=== PATIENT | female | born 1960 | race Caucasian/White ===

== ENCOUNTER 2022-06-21 22:31 | Emergency (ER) | payer OTHER, SELFPAY ==
[2022-06-21 22:40] VITALS: BP 148/85; PULSE 98; RESP 22; TEMP 36.4; O2SAT 99; BMI 38.2
[2022-06-21] MEDS: ondansetron 2 mg/ML SDV 2 mL 4 MG IVP (23:03)
[2022-06-21 23:04] LABS: Basophils # 0.1 10^3/uL (0.0-0.1); Basophils % 0.4 %; Eosinophils # 0.1 10^3/uL (0.0-0.8); Eosinophils % 1.2 %; Hematocrit 49.5 % (37.0-47.0); Hemoglobin 16.5 g/dL (11.5-15.3); Lymphocytes # 1.1 10^3/uL (0.8-4.8); Mean Corpuscular HGB Conc 33.3 g/dL (30.0-36.0); Mean Corpuscular Hemoglobin 32.3 pg (28.0-34.0); Mean Corpuscular Volume 96.9 fl (81-99); Mean Platelet Volume 9.6 fL (7.4-10.4); Monocytes # 0.6 10^3/uL (0.2-0.9); Monocytes % 5.2 %; Neutrophils # 9.31 10^3/uL (1.8-7.7); Neutrophils % 82.9 %; Nucleated Red Blood Cells % 0 %; Platelet Count 198 10^3/cmm (130-400); Red Blood Count 5.11 10^6/uL (4.1-5.3); Red Cell Distribution Width 13.2 % (12.1-15.1); White Blood Count 11.2 10^3/uL (4.0-10.0)
--- NOTE | 2022-06-21 23:14 | ED_ITS ---
HPI - Abdominal Pain General: Chief Complaint: Abdominal Pain Stated Complaint: N/V Time Seen by Provider: 06/21/22 23:05 Source: patient Mode of arrival: ambulatory Limitations: no limitations History of Present Illness: [id number] female who states that she has been having nausea vomiting along with abdominal cramping since 7 PM today after she vomited she has vomited roughly 3-4 times her pain is a 2 out of 10 she denies any fevers denies any diarrhea she states her was recently sick with a GI bug as well. Associated Symptoms: Reports nausea and vomiting; Denies chills, dysuria and fever(s) Review of Systems Const: Denies: fever(s), chills, body aches or change in appetite Eyes: Denies: blurry vision or eye discomfort ENMT: Denies: throat pain or dental pain Card: Denies: chest pain Resp: Denies: dyspnea GI: Reports: abdominal pain, nausea and vomiting : Denies: dysuria Musc: Denies: neck pain or back pain Skin/Breast: Denies: rash Neuro: Denies: headache(s) Psych: Denies: depression Rios/Lymph: Denies: easy bruising All/Imm: Denies: urticaria PFSH ED PFSH: Surgical History (Updated 06/21/22 @ 23:15 by Onesimo Castillo MD) Hx of cholecystectomy Social History (Updated 06/21/22 @ 23:15 by Onesimo Castillo MD) Substance/Drug Use: never Physical Exam Const: COMMON NORMALS: no acute distress, patient oriented x3 and healthy appearing HENMT: COMMON NORMALS: normocephalic and atraumatic HEAD & SCALP: normocephalic and atraumatic Eye: COMMON NORMALS: Equal, round and reactive pupils present and EOMs intact bilaterally PUPIL: Yes Equal, round and reactive pupils present Neck/C-Spine: COMMON NORMALS: full ROM and supple Chest: COMMONS NORMALS: normal inspection of the chest and normal palpation of entire chest wall Resp: COMMON NORMALS: normal respiratory effort, No retractions, No use of accessory muscles and clear to auscultation bilaterally AUSCULTATION: clear to auscultation bilaterally Cardio: COMMON NORMALS: regular rate, regular rhythm and No murmurs present (Cardio) RATE: regular rate RHYTHM: regular rhythm GI: COMMON NORMALS: Normal to inspection, nondistended, normoactive bowel mee nds present, Soft to palpation, non-tender and no masses PALPATION: Yes Soft to palpation Extremity: COMMON NORMALS: normal to inspection and full ROM Neuro: COMMON NORMALS: patient oriented x3, moves all extremities and no focal motor deficits Psych: COMMON NORMALS: mental status grossly normal, Normal thought process present and cooperative THOUGHT PROCESS: Normal thought process present Skin: COMMON NORMALS: no rashes or lesions noted and no wounds GENERAL SKIN EXAM: no rashes or lesions noted Course Vital Signs: Vital signs: Vital Signs Temperature 97.5 F L 06/21/22 22:40 Pulse Rate 106 H 06/22/22 00:52 Respiratory Rate 18 06/22/22 00:52 Blood Pressure 156/83 06/22/22 00:52 Pulse Oximetry 95 06/22/22 00:52 Oxygen Delivery Me thod 06/21/22 22:40 MDM - Abdominal Pain Medical Decision Making Patient presents here with vomiting and mild abdominal pain CT scan here showed no acute ab malady she feels improved here we will prescribe her Zofran for home she is to follow-up with PCP and return if worsening. Lab Data 06/21/22 22:58 06/21/22 22:58 Labs/Radiology: Radiology Impressions Abdomen/Pelvis CT 06/22/22 00:16 IMPRESSION: 1. Mild nonspecific ileus versus gastroenteritis. 2. Colonic diverticulosis without CT evidence of diverticulitis. 3. Hepatic cirrhosis. 4. Previous cholecystectomy. 5. Atherosclerotic vascular disease including coronary artery disease. Laboratory Results WBC 11.2 10^3/uL (4.0-10.0) H 06/21/22 22:58 RBC 5.11 10^6/uL (4.1-5.3) 06/21/22 22:58 Hgb 16.5 g/dL (11.5-15.3) H 06/21/22 22:58 Hct 49.5 % (37.0-47.0) H 06/21/22 22:58 MCV 96.9 fl (81-99) 06/21/22 22:58 MCH 32.3 pg (28.0-34.0) 06/21/22 22:58 MCHC 33.3 g/dL (30.0-36.0) 06/21/22 22:58 RDW 13.2 % (12.1-15.1) 06/21/22 22:58 Plt Count 198 10^3/cmm (130-400) 06/21/22 22:58 MPV 9.6 fL (7.4-10.4) 06/21/22 22:58 Neut % (Auto) 82.9 % 06/21/22 22:58 Lymph % (Auto) 10.0 % 06/21/22 22:58 Gentry % (Auto) 5.2 % 06/21/22 22:58 Eos % (Auto) 1.2 % 06/21/22 22:58 Baso % (Auto) 0.4 % 06/21/22 22:58 Neut # (Auto) 9.31 10^3/uL (1.8-7.7) H 06/21/22 22:58 Lymph # (Auto) 1.1 10^3/uL (0.8-4.8) 06/21/22 22:58 Gentry # (Auto) 0.6 10^3/uL (0.2-0.9) 06/21/22 22:58 Eos # (Auto) 0.1 10^3/uL (0.0-0.8) 06/21/22 22:58 Baso # (Auto) 0.1 10^3/uL (0.0-0.1) 06/21/22 22:58 Nucleated RBC % (auto) 0 % 06/21/22 22:58 Nucleated RBCs # 0.0 /100WBC 06/21/22 22:58 Sodium 136 mmol/L (136-145) 06/21/22 22:58 Potassium 4.1 mmol/L (3.5-5.1) 06/21/22 22:58 Chloride 97 mmol/L (98-107) L 06/21/22 22:58 Carbon Dioxide 20 mmol/L (22-29) L 06/21/22 22:58 Anion Gap 23.1 (5-19) H 06/21/22 22:58 BUN 17 mg/dL (8-23) 06/21/22 22:58 Creatinine 0.6 mg/dL (0.5-0.9) 06/21/22 22:58 GFR Calculation 101.3 mL/min (90-130) 06/21/22 22:58 Glucose 196 mg/dL (65-115) H 06/21/22 22:58 Calculated Osmolality 289 mOsm/kg (285-295) 06/21/22 22:58 Calcium 9.5 mg/dL (8.5-10.5) 06/21/22 22:58 Total Bilirubin 0.5 mg/dL (0.15-1.2) 06/21/22 22:58 AST 37 U/L (0-32) H 06/21/22 22:58 ALT 34 U/L (0-33) H 06/21/22 22:58 Alkaline Phosphatase 79 U/L (35-105) 06/21/22 22:58 Total Protein 7.8 g/dL (6.6-8.7) 06/21/22:58 Albumin 4.2 g/dL (3.5-5.2) 06/21/22:58 Globulin 3.6 g/dL (1.3-4.6) 06/21/22 22:58 Lipase 39 U/L (13-60) 06/21/22 22:58 Urine Color Yellow (Yellow) 06/22/22 00:30 Urine Appearance Clear (CLEAR) 06/22/22 00:30 Urine pH 5 (5-7) 06/22/22 00:30 Ur Specific Chandler 1.020 (1.005-1.030) 06/22/22 00:30 Urine Protein Neg (Negative) 06/22/22 00:30 Urine Glucose (UA) 4+ (Normal) H 06/22/22 00:30 Urine Ketones 2+ (Negative) H 06/22/22 00:30 Urine Blood Neg (Negative) 06/22/22 00:30 Urine Nitrate Negative (Negative) 06/22/22 00:30 Urine Bilirubin Neg (Negative) 06/22/22 00:30 Urine Urobilinogen Norm mg/dL (Negative) 06/22/22 00:30 Ur Leukocyte Esterase Trace (Negative) H 06/22/22 00:30 Urine RBC None /hpf (0-2) 06/22/22 00:30 Urine WBC 0-4 /hpf (0-5) H 06/22/22 00:30 Ur Squamous Epith Cells 0-4 /hpf (0-5) H 06/22/22 00:30 Amorphous Sediment Not Reportable 06/22/22 00:30 Urine Bacteria None /hpf (NONE) 06/22/22 00:30 Discharge Plan Discharge Patient Disposition: Home Clinical Impression: Vomiting Prescriptions: New ondansetron 4 mg tablet,disintegrating 4 mg PO Q6H PRN (Reason: nausea and vomiting) Qty: 14 0RF Discharge Orders: Discharge ED (Routine); Ordered 06/22/22 Ordered By: Onesimo Castillo Discharge Diet: Advance as tolerated Discharge Activity: Resume usual activity Patient Instructions: Acute Nausea and Vomiting (ED) Coding Level of Care Code ED [employer]ician for Chg Fwd Exam Comprehensive
[2022-06-21] MEDS: sodium chloride 0.9% 1,000 ML 999 ML IV (23:15)
[2022-06-21 23:33] LABS: Alanine Aminotransferase 34 U/L (0-33); Albumin Level 4.2 g/dL (3.5-5.2); Alkaline Phosphatase 79 U/L (35-105); Aspartate Amino Transferase 37 U/L (0-32); Blood Urea Nitrogen 17 mg/dL (8-23); Calcium 9.5 mg/dL (8.5-10.5); Carbon Dioxide 20 mmol/L (22-29); Chloride 97 mmol/L (98-107); Globulin 3.6 g/dL (1.3-4.6); Glomerular Filtration Rate 101.3 mL/min (90-130); Glucose 196 mg/dL (65-115); Lipase 39 U/L (13-60); Osmolality Calculated 289 mOsm/kg (285-295); Sodium 136 mmol/L (136-145); Total Bilirubin 0.5 mg/dL (0.15-1.2); Total Protein 7.8 g/dL (6.6-8.7)
[2022-06-21 23:37] LABS: Anion Gap 23.1 (5-19); Potassium 4.1 mmol/L (3.5-5.1)
--- NOTE | 2022-06-22 00:10 | PC.NURSE ---
patient given water for PO challenge
--- NOTE | 2022-06-22 00:16 | CTR_ITS ---
PROCEDURE INFORMATION: Exam: CT Abdomen And Pelvis Without Contrast Exam date and time: 06/22/2022 12:33 AM Age: 62 years old Clinical indication: Nausea and vomiting; Abdominal pain; Generalized; Prior surgery; Surgery type: Gb; Patient HX: C/O diffuse abd pain with n/v. TECHNIQUE: Imaging protocol: Computed tomography of the abdomen and pelvis without contrast. Radiation optimization: All CT scans at this facility use at least one of these dose optimization techniques: automated exposure control; mA and/or kV adjustment per patient size (includes targeted exams where dose is matched to clinical indication); or iterative reconstruction. COMPARISON: No relevant prior studies available. RADIATION DOSE METRICS: Total DLP (mGy-cm): 1124.33 FINDINGS: Heart: Coronary artery calcifications. Liver: Diffusely nodular hepatic appearance and contour consistent with cirrhosis. No definite focal hepatic lesion on noncontrast imaging. Gallbladder and bile ducts: Previous cholecystectomy. Pancreas: No acute abnormality. No ductal dilation. Spleen: No splenomegaly. Tiny punctate splenic calcified granulomas. Adrenal glands: No acute abnormality. No mass. Kidneys and ureters: No acute abnormality. No obstructing calculi. No hydronephrosis. Stomach and bowel: Mild amount of fluid within nondistended stomach. No significant or disproportionate large or small bowel distention. Fluid within small bowel with a few scattered air-fluid levels. Gas and stool within the colon. Colonic diverticulosis without CT evidence of diverticulitis. Appendix: Grossly normal nondilated visualized appendix. Intraperitoneal space: No significant fluid collection. No free air. Vasculature: Atherosclerotic vascular calcification. No aortic aneurysm. Lymph nodes: No enlarged lymph nodes. Urinary bladder: Unremarkable as visualized. No bladder calculi. Reproductive: Unremarkable as visualized. Bones/joints: No acute osseous abnormality. No dislocation. Soft tissues: Mild rectus abdominis diastasis, ventral eventration and tiny fat containing umbilical hernia. CT/CT abdomen pelvis wo con [id number] IMPRESSION: 1. Mild nonspecific ileus versus gastroenteritis. 2. Colonic diverticulosis without CT evidence of diverticulitis. 3. Hepatic cirrhosis. 4. Previous cholecystectomy. 5. Atherosclerotic vascular disease including coronary artery disease.
[2022-06-22] MEDS: ondansetron 2 mg/ML SDV 2 mL 4 MG IVP (00:21)
[2022-06-22 00:23] VITALS: RESP 16
[2022-06-22] MEDS: morphine 4 mg/mL SDV 1 mL IVP (00:23)
[2022-06-22 00:52] VITALS: BP 156/83; PULSE 106; RESP 18; O2SAT 95
[2022-06-22 01:07] LABS: Bilirubin Urine Neg (Negative); Blood Urine Neg (Negative); Glucose Urine UA 4+ (Normal); Ketones Urine 2+ (Negative); Nitrate Urine Negative (Negative); Protein Urine Neg (Negative); Urine Appearance Clear (CLEAR); Urine Color Yellow (Yellow); pH Urine 5 (5-7)
[2022-06-22 01:08] LABS: Add Urine Culture? No; Add Urine Microscopic? YES; Leukocyte Esterase Urine Trace (Negative); Squamous Epithelial Cell Urine 0-4 /hpf (0-5); Urobilinogen Urine Norm (Negative); WBC Urine 0-4 /hpf (0-5)
[2022-06-22] MEDS: ondansetron 4 MG Tablet PO (01:20)
[2022-06-22 01:41] VITALS: BP 162/88; PULSE 110; RESP 16; O2SAT 94
== END 2022-06-22 01:30 | disposition home or self-care (01) ==
PROVIDERS: Emergency Provider Emergency Medicine
DX: R11.10 Vomiting, unspecified (principal)
CPT/HCPCS: 74176; 80053; 81001; 83690; 85025; 96361; 96374; 96375; 96376; 99285; J2270; J2405; J7030; Q0162